=== PATIENT | male | born 1950 | race Caucasian/White ===

== ENCOUNTER 2016-10-17 13:17 | Day surgery (SDC) | payer OTHER ==
[2016-10-17 14:04] VITALS: PULSE 80; RESP 16
[2016-10-17] MEDS ORDERED: LR 1,000 ML IV SCH (14:30)
--- NOTE | 2016-10-17 14:33 | PDGENHP ---
History & Physical Chief Complaint: Anemia and rectal bleeding. History of Present Illness: Hx of anemia and rectal bleeding. Relevant Physical Exam: GEN: NAD. Cardiac: Pacemaker, RRR. Lungs: CTA B. Abd : Soft, nt, nd
[2016-10-17] MEDS ORDERED: KETAMINE 100 MG/10 ML SYR ONE (14:43)
[2016-10-17] MEDS ORDERED: NALOXONE HCL 0.4 MG/ML INJ IVP PRN (14:55)
[2016-10-17] MEDS ORDERED: ONDANSETRON 4 MG/2 ML VIAL IVP PRN (14:55)
--- NOTE | 2016-10-17 14:55 | PDANEPAE ---
ANE History of Present Illness patient presents for egd/colonoscopy ANE Past Medical History - Cardiovascular History Hx Hypertension: Yes Hx Arrhythmias: Yes Hx Chest Pain: Yes Hx Coronary Artery / Peripheral Vascular Disease: No Hx CHF / Valvular Disease: Yes Hx Palpitations: No - Pulmonary History Hx COPD: No Hx Asthma/Reactive Airway Disease: No Hx Recent Upper Respiratory Infection: No Hx Oxygen in Use at Home: No - Endocrine History Hx Diabetes: Yes - Renal History Hx Renal Disorders: No - Liver History Hx Hepatic Disorders: No - Neurological & Psychiatric Hx Hx Neurological and Psychiatric Disorders: No - Cancer History Hx Cancer: No - Congenital Disorder History Hx Congenital Disorders: No - GI History Hx Gastrointestinal Disorders: Yes - Chronic Pain History Chronic Pain: No ANE Review of Systems - Exercise capacity Exercise capacity: <4 METS METS (RN): 4 METS - Pacemaker Pacemaker Type: Bi-Ventricular Pacemaker 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 Pacemaker Model: CANNONEER Date Pacemaker Last Checked: 12/2015 ANE Patient History - Allergies Allergies/Adverse Reactions: No Known Allergies Allergy (Unverified 10/16/16 16:38) - Home Medications Home Medications: Aspirin 81mg (*) 10/16/16 [Last Taken 10/16/16 09:00] Atorvastatin Calcium 10/16/16 [Last Taken 10/16/16] Carvedilol 10/16/16 [Last Taken 10/15/16] Digoxin 10/16/16 [Last Taken 10/17/16] Glimepiride 10/16/16 [Last Taken 10/15/16] Multivitamin 10/16/16 [Last Taken 10/15/16] Spironolactone 10/16/16 [Last Taken 10/17/16] Warfarin Sodium 10/16/16 [Last Taken 10/14/16 09:00] - NPO status NPO Since - Liquids (Date): 10/17/16 NPO Since - Liquids (Time): 05:00 NPO Since - Solids (Date): 10/16/16 NPO Since - Solids (Time): 09:00 - Smoking Hx Smoking Status: Former smoker ANE Labs/Vital Signs - Vital Signs Blood Pressure: 113/69 Heart Rate: 80 Respiratory Rate: 16 O2 Sat (%): 93 Height: 187.96 cm Weight: 114.759 kg ANE Physical Exam - Airway Neck exam: FROM Mallampati Score: Class 3 Mouth exam: gonzales - Pulmonary Pulmonary: no respiratory distress - Cardiovascular Cardiovascular: regular rate and rhythym - ASA Status ASA Status: IV ANE Anesthesia Plan Anesthesia Plan: GA with mask (rba discussed)
[2016-10-17 15:40] VITALS: TEMP 98.6
--- NOTE | 2016-10-17 15:43 | POSTANESTH ---
Post Anesthetic Evaluation Cardiovascular Status: Normal, Stable Respiratory Status: Normal, Stable Level of Consciousness/Mental Status: Can Participate in Eval Pain Control: Adequate, Prn Tx Ordered Nausea/Vomiting Control: Adequate, Prn Tx Ordered Complications Possibly Related to Anesthesia: None Noted
[2016-10-17 16:41] VITALS: BP 130/68; O2SAT 95
--- NOTE | 2016-10-17 19:44 | GPN ---
[f rep st] PROCEDURE NOTE PREPROCEDURE DIAGNOSES: Iron deficiency anemia and hematochezia. POSTPROCEDURE DIAGNOSES: 1. Mild gastritis, status post biopsies. 2. Large external hemorrhoids. 3. Left-sided diverticulosis. MEDICATIONS: Monitored anesthesia care. PROCEDURE: Esophagogastroduodenoscopy with biopsies, colonoscopy. INDICATIONS: The patient is a 66-year-old male with a history of iron deficiency anemia and hematoc hezia who is presenting for upper and lower endoscopy. Risks and benefits of the procedure were dis cussed with the patient and consent obtained. Risks include, but are not limited to, bleeding, perf oration, risks associated with sedation. The patient is ASA class IV. He has a history of cardiomy opathy and indwelling biventricular pacemaker. He stopped his Coumadin 5 days ago. DESCRIPTION OF PROCEDURE: The upper endoscope was inserted into the esophagus and the stomach and s econd portion of the duodenum. The esophagus appeared normal. There was no evidence of esophagitis or Arzate's. The Z-line was regular and located at 45 cm from the incisors. The stomach showed m ild gastric antral gastritis. Biopsies were taken using cold biopsy forceps to evaluate for Helicob acter pylori. The duodenum and second portion were normal. Biopsies were taken using cold biopsy f orceps. The patient was then repositioned, and the adult colonoscope was advanced into the terminal ileum, which appeared normal. The ileocecal valve, appendiceal orifice, cecum, ascending colon, he patic flexure, transverse colon, and splenic flexure appeared normal. He had moderate left-sided di verticulosis in the sigmoid colon and descending colon. Retroflexed views in the rectum were normal . He had large external hemorrhoids. IMPRESSION: 1. Mild gastritis. 2. Large external hemorrhoids. 3. Left-sided diverticulosis. RECOMMENDATIONS: 1. Advance diet as tolerated. 2. Discharge to home with escort. 3. Follow up the final pathology results. Results available within 10 days. 4. Repeat colonoscopy in 5 years, given history of polyps. 5. I suspect his rectal bleeding is secondary to hemorrhoids. I recommend topical hydrocortisone c ream, applied twice per day for 14 days. Thank you for allowing me to participate in the care of your patient. Please do not hesitate to bea dale with questions. /[id number]/MODL
== END 2016-10-17 17:09 | disposition home or self-care (01) ==
LOC: FSGY 13:17
PROVIDERS: ATTEND Internal Medicine Gastroenterology
PROC: 0DB98ZX Excision of Duodenum, Via Natural or Artificial Opening Endoscopic, Diagnostic (ICD-10-PCS; principal; 2016-10-17 15:15)
PROC: 0DB68ZX Excision of Stomach, Via Natural or Artificial Opening Endoscopic, Diagnostic (ICD-10-PCS; principal; 2016-10-17 15:15)
PROC: 0DJD8ZZ Inspection of Lower Intestinal Tract, Via Natural or Artificial Opening Endoscopic (ICD-10-PCS; principal; 2016-10-17 15:15)
DX: K64.4 Residual hemorrhoidal skin tags (principal); K57.30 Diverticulosis of large intestine without perforation or abscess without bleeding; K29.70 Gastritis, unspecified, without bleeding; Z95.0 Presence of cardiac pacemaker